=== PATIENT | female | born 1985 | race African-American/Black ===

== ENCOUNTER 2017-03-06 18:49 | Emergency (ER) | payer SELFPAY ==
[~2017-03-06] VITALS: Ht 180.3 cm; Wt 138.3 kg
[2017-03-06] MEDS ORDERED: KETOROLAC TROMETHAMINE 30 MG/ML INJ. IV ONE (19:15)
[2017-03-06] MEDS ORDERED: IV NORMAL SALINE 1000ML BAG 1,000 ML IV ONE (19:15)
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
[2017-03-06 19:33] VITALS: BP 163/104
[2017-03-06] MEDS ORDERED: NAPR500T PO (19:42)
[2017-03-06] MEDS ORDERED: CYCL10TA2 PO (19:42)
--- NOTE | 2017-03-07 06:22 | EKG ---
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
== END 2017-03-06 19:45 | disposition left against medical advice (07) ==
LOC: ER 18:49
DX: S29.012A Strain of muscle and tendon of back wall of thorax, initial encounter (principal); R00.0 Tachycardia, unspecified; F17.200 Nicotine dependence, unspecified, uncomplicated; V49.40XA Driver injured in collision with unspecified motor vehicles in traffic accident, initial encounter; Y93.I9 Activity, other involving external motion; Y92.410 Unspecified street and highway as the place of occurrence of the external cause; Y99.8 Other external cause status
CPT/HCPCS: 93005; 99283; C1887